=== PATIENT | female | born 1960 | race Caucasian/White ===

== ENCOUNTER 2020-05-31 13:20 | Emergency (ER) | payer OTHER, SELFPAY ==
[2020-05-31 13:34] VITALS: BP 146/71; PULSE 85; RESP 20; TEMP 36.8; O2SAT 98
--- NOTE | 2020-05-31 13:53 | ED.LOWEXIN ---
HPI - Extremity Injury (Lower) General Chief Complaint: Extremity Injury, Lower Stated Complaint: right leg injury Time Seen by Provider: 05/31/20 13:45 Source: patient Mode of arrival: ambulatory Limitations: no limitations History of Present Illness HPI Narrative: Patient is a 60-year-old female who presents complaining of right posterior leg pain. She reports boyfriend was falling with wheelchair when she stopped fall and felt a pop in her right posterior leg. She denies fall. She denies other injuries. Patient has not taken pain medication prior to arrival. MD complaint: leg injury Related Data Home Medications Medication Instructions Recorded Confirmed dulaglutide 0.75 mg/0.5 mL 0.75 mg SUB-Q WEEKLY 08/31/19 05/31/20 subcutaneous pen injector duloxetine 60 mg capsule,delayed 60 mg PO DAILY 08/31/19 05/31/20 release spironolactone 100 mg tablet 100 mg PO DAILY 08/31/19 05/31/20 Allergies Allergy/AdvReac Type Severity Reaction Status Date / Time No Known Allergies Allergy Verified 05/31/20 13:40 Review of Systems Review of Systems: Narrative: CONSTITUTIONAL: Denies fever, chills, or sweats. EYES: Denies visual changes, redness, or discharge. ENT: Denies rhinorrhea, congestion, sore throat, or otalgia. CARDIOVASCULAR: Denies chest pain, palpitations, or edema. RESPIRATORY: Denies cough or dyspnea. GASTROINTESTINAL: Denies abdominal pain, nausea, vomiting, or diarrhea. GENITOURINARY: Denies dysuria or hematuria. SKIN: Denies rash or itching. MUSCULOSKELETAL: Denies back pain, reports right posterior upper leg pain NEUROLOGIC: Denies headache, numbness, dizziness, or weakness. PSYCHIATRIC: Denies anxiety or depression. [facility] Past Medical History Medical History (Updated 05/31/20 @ 14:02 by EROS He) Cervical stenosis of spinal canal Degenerative disc disease, cervical Hyperlipidemia, unspecified Hypothyroidism, unspecified Sleep apnea, unspecified Type 2 diabetes mellitus without complications Surgical History Surgical History History of cervical discectomy Family History Family History Mother Family history of hypothyroidism Family history of heart disease in male family member before age 55 Acute myocardial infarction Sibling Family history of hypothyroidism Family history of heart disease in male family member before age 55 Father Family history of chronic obstructive pulmonary disease Social History Social History Smoking status: Current every day smoker Second hand tobacco smoke exposure: Yes Smoking end date: 08/23/06 Alcohol intake: current Exam Narrative: Exam Narrative: GENERAL: Well-appearing, well-nourished, and in no acute distress. HEAD: Normocephalic, atraumatic. CHEST: No respiratory distress. Clear to auscultation. HEART: Regular rate and rhythm. No murmur appreciated. Normal peripheral pulses. MUSCULOSKELETAL: No bony tenderness. EXTREMITIES: Normal range of motion. No edema. Pain to posterior right hamstring with palpation, no visible deformity. Full flexion and extension of right leg. SKIN: Warm, dry, no rash. NEURO: No focal deficits. Alert and oriented x3. Gait steady. PSYCH: Normal affect. No signs of depression or anxiety. Course Vital Signs Vital signs: Vital Signs Temperature 36.8 C 05/31/20 13:34 Pulse Rate 85 05/31/20 13:34 Respiratory Rate 20 05/31/20 13:34 Blood Pressure 146/71 H 05/31/20 13:34 Pulse Oximetry 98 05/31/20 13:34 Temperature 36.8 C 05/31/20 13:34 Pulse Rate 85 05/31/20 13:34 Respiratory Rate 20 05/31/20 13:34 Blood Pressure 146/71 H 05/31/20 13:34 Pulse Oximetry 98 05/31/20 13:34 MDM - Extremity Injury (Lower) MDM Narrative Medical decision making narrative: Patient shows no deformity to right leg, amb
== END 2020-05-31 14:11 | disposition home or self-care (01) ==
PROVIDERS: Emergency Provider Nurse Practitioner
DX: S76.311A Strain of muscle, fascia and tendon of the posterior muscle group at thigh level, right thigh, initial encounter (principal); X50.0XXA Overexertion from strenuous movement or load, initial encounter; F17.200 Nicotine dependence, unspecified, uncomplicated; E11.9 Type 2 diabetes mellitus without complications; G47.30 Sleep apnea, unspecified; E03.9 Hypothyroidism, unspecified; E78.5 Hyperlipidemia, unspecified; M48.02 Spinal stenosis, cervical region
CPT/HCPCS: 99213; G0463